=== PATIENT | female | born 1970 | race Caucasian/White ===

== ENCOUNTER 2018-01-06 14:33 | Outpatient (CLI) | payer BC | END 2018-01-06 14:34 | disposition home or self-care (01) | LOC: BICMAMMO 14:33 | PROVIDERS: ATTEND Obstetrics & Gynecology | DX: Z12.31 Encounter for screening mammogram for malignant neoplasm of breast (principal) | CPT/HCPCS: 77063; 77067 ==

== ENCOUNTER 2018-08-09 13:56 | Emergency (ER) | payer BC ==
[2018-08-09 14:28] LABS: #Eosinphils 0.1 thou/uL (0.0-0.7); #Lymphocytes 2.3 thou/uL (1.20-3.40); #Monocytes 0.5 thou/uL (0.11-0.59); #Neutrophils 4.4 thou/uL (1.40-6.50); %Basophils 0.3 % (0.0-1.0); %Eosinophils 1.8 % (0.0-10.0); %Lymphocytes 31.6 % (21.0-51.0); %Monocytes 6.2 % (0.0-10.0); %Neutrophils 60.1 % (42.0-75.0); Hemoglobin 13.4 g/dL (12.0-16.0); Mean Corpuscular HGB CONC 34.7 g/dL (32.0-36.0); Mean Corpuscular Hemoglobin 32.9 pg (27.0-31.0); Mean Platelet Volume 6.6 fL (7.4-10.4); Platelet Count 249 thou/uL (130-400); RBC Distribution Width 11.4 % (11.5-14.5); Red Blood Cell (RBC) Count 4.08 mill/uL (4.20-5.40); White Blood Cell (WBC) Count 7.3 thou/uL (4.8-10.8)
[2018-08-09] MEDS ORDERED: Acetaminophen 325 MG TAB ONE (14:43)
[2018-08-09] MEDS ORDERED: Metoclopramide HCl 10 MG/2 ML VIAL ONE ×2 (14:46→15:49)
[2018-08-09] MEDS ORDERED: Ondansetron PF 4 MG/2 ML Vial ONE (14:51)
[2018-08-09 14:52] LABS: ALT (SGPT) 16 U/L (8-55); AST (SGOT) 17 U/L (5-34); Albumin 4.4 g/dL (3.5-5.0); Alkaline Phosphatase 78 U/L (40-150); Anion Gap 15 mmol/L (10-20); BUN (Urea Nitrogen) 11 mg/dL (7.0-18.7); Bilirubin, Total 1.1 mg/dL (0.2-1.2); Calc. Creatinine Clearance 0 mL/min (70-130); Calcium 9.6 mg/dL (7.8-10.44); Carbon Dioxide 23 mmol/L (22-29); Chloride 105 mmol/L (98-107); Estimated GFR-MDRD 70; Globulin 2.9 g/dL (2.4-3.5); Glucose 105 mg/dL (70-105); Potassium 3.6 mmol/L (3.5-5.1); Protein, Total 7.3 g/dL (6.0-8.3); Sodium 139 mmol/L (136-145)
--- NOTE | 2018-08-09 14:56 | CT ---
CT HEAD WITHOUT CONTRAST: HISTORY: Seizure lasting approximately 30 seconds. COMPARISON: 08/20/2009 FINDINGS: No parenchymal hemorrhage. No extraaxial hematoma. No midline shift. The basilar cisterns are vivar nt. Brain volume is age appropriate. Cortical martinez white matter differentiation is preserved. No evidence of hydrocephalus. The calvarium is intact. Adequate aeration of the sinuses and mastoid air cells. IMPRESSION: No acute intracranial process. POS: [facility]
[2018-08-09] MEDS ORDERED: levETIRAcetam In NaCl (Iso-Os) 1,000 MG in Premix Bag 1 BAG IVPB SCH (15:30)
[2018-08-09] MEDS ORDERED: diphenhydrAMINE 50 MG/ML VIAL ONE (16:16)
[2018-08-09] MEDS ORDERED: Ketorolac Tromethamine 30 MG/ML VIAL ONE (16:16)
[2018-08-09] MEDS ORDERED: Dexamethasone 4 mg/ml Vial ONE (16:45)
--- NOTE | 2018-08-09 17:16 | RAD ---
LEFT KNEE FOUR VIEWS: 08/09/18 HISTORY: Seizure at work. Fell on knee. There is no signs of fracture, dislocation or joint effusion. There is minimal patellofemoral spur fo rmation and some slight medial compartment narrowing. IMPRESSION: No acute injury. POS: [facility]
== END 2018-08-09 18:30 | disposition home or self-care (01) ==
LOC: ERS 13:56
DX: R56.9 Unspecified convulsions (principal); E03.9 Hypothyroidism, unspecified; F41.9 Anxiety disorder, unspecified; F32.9 Major depressive disorder, single episode, unspecified; Z79.899 Other long term (current) drug therapy
CPT/HCPCS: 36415; 70450; 80053; 85025; 93005; 96365; 96366; 96375; J1100; J1200; J1885; J1953; J2405; J2765

== ENCOUNTER 2019-05-12 13:34 | Outpatient (CLI) | payer BC ==
--- NOTE | 2019-05-12 14:39 | MMO ---
Right Breast MAMMO Unilat Diag DDI RT+RAJAN. CLINICAL HISTORY: Patient is 48 years old and is seen for additional evaluation requested from prior study. The patient has no family history of breast cancer. The patient has no personal history of cancer. VIEWS: The views performed were: right craniocaudal spot compression with tomosynthesis; right mediolateral oblique spot compression with tomosynthesis; and right mediolateral with tomosynthesis. FILMS COMPARED: The present examination has been compared to prior imaging studies performed at [facility] on 05/02/2019, and at [facility] on 03/20/2016, 01/06/2018 and 05/12/2019. This study has been interpreted with the assistance of computer-aided detection. MAMMOGRAM FINDINGS: There are scattered fibroglandular densities. The area of concern on prior screening mammography is not seen on the additional diagnostic mammography. On CC imaging, no persistent density is noted. On MLO/ML imaging the density is less conspicuous, similar to prior studies. In addition, focused ultrasound is unremarkable. There are no suspicious masses, suspicious calcifications, or new areas of architectural distortion. IMPRESSION: THERE IS NO MAMMOGRAPHIC EVIDENCE OF MALIGNANCY. A ROUTINE FOLLOW-UP MAMMOGRAM IN 1 YEAR IS RECOMMENDED. THE RESULTS OF THIS EXAM WERE SENT TO THE PATIENT. ACR BI-RADS Category 2 - Benign finding MAMMOGRAPHY NOTE: 1. A negative mammogram report should not delay a biopsy if a dominant of clinically suspicious mass is present. 2. Approximately 10% to 15% of breast cancers are not detected by mammography. 3. Adenosis and dense breasts may obscure an underlying neoplasm. Reported by: APOLONIA MANCIA MD Electonically Signed: [id number]
--- NOTE | 2019-05-12 15:32 | ULT ---
FOCUSED ULTRASOUND OF THE LEFT BREAST: DATE: 05/12/2019. HISTORY: Asymmetric density in the posterior central right breast seen on recent mammography. FINDINGS: Focused ultrasound of the right breast in the posterior retroareolar region demonstrates no abnormali ty. No mass or abnormal shadowing. IMPRESSION: Unremarkable focused ultrasound of the right breast. Please diagnostic mammography report for BIRADS classification and followup recommendations. POS: OFF
== END 2019-05-12 13:35 | disposition home or self-care (01) ==
LOC: BICMAMMO 13:34
PROVIDERS: ATTEND Obstetrics & Gynecology
DX: N63.10 Unspecified lump in the right breast, unspecified quadrant (principal)
CPT/HCPCS: G0279